=== PATIENT | male | born 1990 | race Caucasian/White ===

== ENCOUNTER 2021-11-05 21:13 | Emergency (ER) | payer MEDICAID ==
[~2021-11-05] VITALS: Ht 175.3 cm; Wt 80.3 kg
[~2021-11-05 21:13] MED LIST: CLIN150C2 PO; COL100C PO; FAMO-1 PO; HYDR-3965 PO; LEVO500T2 PO
[2021-11-05 21:58] VITALS: BP 118/73
[2021-11-06] MEDS ORDERED: acetaminophen 325mg tablet PO ONE (02:10)
[2021-11-06] MEDS ORDERED: ketorolac trometh inj. 60 MG/2 ML VIAL IM ONE (02:10)
[2021-11-06] MEDS ORDERED: PANT-47 PO (02:30)
== END 2021-11-06 02:35 | disposition home or self-care (01) ==
LOC: ER 21:14
DX: M79.671 Pain in right foot (principal); Z87.11 Personal history of peptic ulcer disease; Z90.89 Acquired absence of other organs; Z88.8 Allergy status to other drugs, medicaments and biological substances; Z79.2 Long term (current) use of antibiotics; Z79.899 Other long term (current) drug therapy
CPT/HCPCS: 73630; 96372; 99283; J1885

== ENCOUNTER 2022-04-18 12:34 | Inpatient (IN) | payer MEDICAID ==
[~2022-04-18] VITALS: Ht 167.6 cm; Wt 81.8 kg
[~2022-04-18 12:34] MED LIST changes: +PANT-47 PO
[2022-04-18 13:21] LABS: BASOPHILS # (AUTO) 0.1 X10'3 (0-0.2); BASOPHILS % (AUTO) 0.6 % (0-1); EOSINOPHILS # (AUTO) 0.2 X10'3 (0-0.9); EOSINOPHILS % (AUTO) 2.7 % (0-6); HEMATOCRIT 42.1 % (42.0-52.0); HEMOGLOBIN 14.3 g/dl (14.0-17.9); LYMPHOCYTES # (AUTO) 2.6 X10'3 (1.1-4.8); LYMPHOCYTES % (AUTO) 28.8 % (21-51); MEAN CORPUSCULAR HEMOGLOBIN 30.5 PG (27.0-31.0); MEAN CORPUSCULAR VOLUME 89.7 FL (78-98); MEAN PLATELET VOLUME 8.2 FL (7.4-10.4); MONOCYTES # (AUTO) 0.8 X10'3 (0-0.9); MONOCYTES % (AUTO) 8.3 % (2-12); NEUTROPHILS # (AUTO) 5.4 X10'3 (1.8-7.7); NEUTROPHILS % (AUTO) 59.6 % (42-75); PLATELET COUNT 363 X10'3 (140-440); RED CELL DISTRIBUTION WIDTH 13.2 % (11.5-14.5); WHITE BLOOD COUNT 9.1 X10'3 (4.5-11.0)
[2022-04-18 13:23] LABS: ALANINE AMINOTRANSFERASE 43 U/L (12-78); ALBUMIN 3.7 G/DL (3.4-5.0); ALBUMIN/GLOBULIN RATIO 1.2 (1.1-1.5); ALKALINE PHOSPHATASE 58 IU/L (46-116); ANION GAP 6 (8-16); ASPARTATE AMINO TRANSFERASE 23 U/L (10-37); BILIRUBIN,TOTAL 0.5 MG/DL (0.1-1.0); BLOOD UREA NITROGEN 10 MG/DL (7-18); BUN/CREATININE RATIO 10.4 (5.4-32.0); CALCIUM 8.8 MG/DL (8.5-10.1); CHLORIDE 108 MMOL/L (99-107); CREATININE 0.96 MG/DL (0.60-1.10); GLUCOSE 101 MG/DL (70-104); POTASSIUM 4.1 MMOL/L (3.5-5.1); SODIUM 143 MMOL/L (135-145); TOTAL CARBON DIOXIDE 28.9 MMOL/L (24-32); TOTAL PROTEIN 6.8 G/DL (6.4-8.2); eGFR > 90 ML/MIN
[2022-04-18] MEDS ORDERED: normal saline 1000ML IV soln IVB ONE (14:30)
[2022-04-18] MEDS ORDERED: diphenhydrAMINE 50 mg/ml inj IV ONE (14:30)
[2022-04-18] MEDS ORDERED: proCHLORperazine 10 MG/2 ml inj IV ONE (14:30)
[2022-04-18] MEDS ORDERED: ketorolac trometh. 30mg/ml inj. IV ONE (14:30)
[2022-04-18 15:44] LABS: ETHANOL < 0.010 GM/DL (0.0-0.010)
[2022-04-18 15:53] LABS: CLARITY,URINE CLEAR (Clear); COLOR,URINE YELLOW (Yellow); GLUCOSE, URINE NEGATIVE (Neg); KETONES,URINE NEGATIVE (Neg); LEUKOCYTE ESTERASE ,URINE NEGATIVE (Neg); NITRITES, URINE NEGATIVE (Neg); OCCULT BLOOD,URINE NEGATIVE (Neg); PROTEIN,URINE NEGATIVE (Neg); UROBILINOGEN,URINE 0.2 E.U/dL (0.2-1.0)
[2022-04-18 15:55] LABS: UA COLLECTION TYPE URINAL
[2022-04-18 15:58] LABS: URINE AMPHETAMINE SCREEN NEGATIVE (Neg); URINE BARBITUATE SCREEN NEGATIVE (Neg); URINE BENZODIAZEPINES SCREEN NEGATIVE (Neg); URINE CANNABINOID SCREEN POSITIVE (Neg); URINE COCAINE SCREEN NEGATIVE (Neg); URINE METHADONE SCREEN NEGATIVE (Neg); URINE OPIATE SCREEN POSITIVE (Neg); URINE PHENCYCLIDINE SCREEN NEGATIVE (Neg)
[2022-04-18] MEDS ORDERED: acetaminophen 650mg rectal suppository RC PRN (19:00)
[2022-04-18] MEDS ORDERED: diphenhydrAMINE 25mg capsule PO PRN (19:00)
[2022-04-18] MEDS ORDERED: magnesium hydroxide 30ml (MOM) UD suspension PO PRN (19:00)
[2022-04-18] MEDS ORDERED: mag hydrox/Alum hydrox/simeth 30ml oral suspension PO PRN (19:00)
[2022-04-18] MEDS ORDERED: magnesium 4gm in 100ml NS 100 ML IV PRN (19:00)
[2022-04-18] MEDS ORDERED: ondansetron/PF 4mg/2ml inj IV PRN (19:00)
[2022-04-18] MEDS: normal saline 1000ml 1,000 ML IV SCH (19:00)
[2022-04-18] MEDS ORDERED: magnesium Cl slow-release 64mg tablet PO PRN (19:00)
[2022-04-18] MEDS ORDERED: bisacodyl 10mg suppository rectal RC PRN (19:00)
[2022-04-18] MEDS ORDERED: POTASSIUM BICARB 20meq eff tab 20 MEQ TABLET.EFF PO PRN ×2 (19:00)
[2022-04-18] MEDS ORDERED: potassium CL 10mEq/100ml bag 100 ML IV PRN (19:00)
[2022-04-18] MEDS ORDERED: acetaminophen 325mg tablet PO PRN ×2 (19:00)
[2022-04-18] MEDS ORDERED: HYDROcodone/acetaminophen 5mg/325mg tablet PO PRN (19:00)
[2022-04-18] MEDS ORDERED: magnesium 2GM in 50ml NS 50 ML IV PRN (19:00)
[2022-04-18] MEDS ORDERED: PERFLUTREN PROTEIN-A MICROSPHR (Optison) 0.22 MG/ML 3ML VIAL IV ONE (19:00)
[2022-04-18] MEDS ORDERED: iohexol 350MG/ML 100ml bottle IV ONE (19:12)
[2022-04-18] MEDS: docusate sod 100mg capsule PO SCH (20:00)
[2022-04-18] MEDS: K and/or MAG REPLACEMENT MC SCH (20:00)
[2022-04-18] MEDS ORDERED: levetiracetam inj 1,000 MG in normal saline 100ml IV soln 90 ML IV STA (20:10)
[2022-04-18] MEDS: heparin, porcine 5000 units/ml vial SQ SCH (20:31)
[2022-04-18] MEDS: HYDROcodone/acetaminophen 10/325mg tab PO PRN (20:37)
[2022-04-18 22:25] VITALS: BP 114/45
--- NOTE | 2022-04-18 22:25 | NUR ---
pt rcd from er per luly.pt sedated but arousable with min stim.hr still in high 30's.bp 114/45.informed dr. de la cruz advised to transfer pt to higher level of care.0 will transfer pt to [facility].
[2022-04-18] MEDS ORDERED: atropine 1 MG/1 ML vial IV PRN (22:50)
[2022-04-18 23:45] VITALS: BP 104/61
--- NOTE | 2022-04-18 23:45 | NUR ---
Report given to ADOLPH Arambula,transfer pt to [facility] per bed,still sleepy.all belongings with pt.
[2022-04-19 02:00] VITALS: BP 104/52
[2022-04-19] MEDS: normal saline 1000ml 1,000 ML IV SCH (05:00)
[2022-04-19 06:00] VITALS: BP 98/63
[2022-04-19 06:44] LABS: BASOPHILS # (AUTO) 0.1 X10'3 (0-0.2); BASOPHILS % (AUTO) 0.7 % (0-1); EOSINOPHILS # (AUTO) 0.3 X10'3 (0-0.9); HEMOGLOBIN 13.4 g/dl (14.0-17.9); LYMPHOCYTES # (AUTO) 2.8 X10'3 (1.1-4.8); LYMPHOCYTES % (AUTO) 40.8 % (21-51); MEAN CORPUSCULAR HEMOGLOBIN 31.3 PG (27.0-31.0); MEAN CORPUSCULAR HGB CONC 34.4 g/dL (33.0-36.5); MEAN CORPUSCULAR VOLUME 91.1 FL (78-98); MEAN PLATELET VOLUME 8.4 FL (7.4-10.4); MONOCYTES # (AUTO) 0.7 X10'3 (0-0.9); NEUTROPHILS % (AUTO) 44.5 % (42-75); PLATELET COUNT 307 X10'3 (140-440); RED BLOOD COUNT 4.28 X10'6 (4.70-6.10); RED CELL DISTRIBUTION WIDTH 13.1 % (11.5-14.5); WHITE BLOOD COUNT 6.8 X10'3 (4.5-11.0)
--- NOTE | 2022-04-19 06:47 | NUR ---
Problems reprioritized. Patient report given, questions answered & plan of care reviewed with ADOLPH Enriquez.
[2022-04-19 07:06] LABS: ALANINE AMINOTRANSFERASE 34 U/L (12-78); ALBUMIN 3.1 G/DL (3.4-5.0); ALBUMIN/GLOBULIN RATIO 1.2 (1.1-1.5); ALKALINE PHOSPHATASE 50 IU/L (46-116); ANION GAP 5 (8-16); ASPARTATE AMINO TRANSFERASE 20 U/L (10-37); BILIRUBIN,TOTAL 0.5 MG/DL (0.1-1.0); BLOOD UREA NITROGEN 8 MG/DL (7-18); CALCIUM 8.6 MG/DL (8.5-10.1); CHLORIDE 113 MMOL/L (99-107); CHOL/HDL RATIO 2.7 (0.00-4.99); CHOLESTEROL 109 MG/DL (0-200); CREATININE 0.89 MG/DL (0.60-1.10); GLUCOSE 91 MG/DL (70-104); HDL CHOLESTEROL 40 MG/DL (35-60); LDL CHOLESTEROL 55 MG/DL (50-100); MAGNESIUM 2.2 MG/DL (1.5-2.4); PHOSPHORUS 3.3 MG/DL (2.3-4.5); POTASSIUM 4.3 MMOL/L (3.5-5.1); SODIUM 145 MMOL/L (135-145); TOTAL CARBON DIOXIDE 27.1 MMOL/L (24-32); TOTAL PROTEIN 5.7 G/DL (6.4-8.2); TRIGLYCERIDES 52 MG/DL (20-135); eGFR > 90 ML/MIN
[2022-04-19] MEDS: K and/or MAG REPLACEMENT MC SCH (08:00)
[2022-04-19] MEDS: docusate sod 100mg capsule PO SCH (08:00)
[2022-04-19] MEDS ORDERED: levetiracetam 250mg tablet PO SCH (08:00)
[2022-04-19] MEDS: heparin, porcine 5000 units/ml vial SQ SCH (08:00)
[2022-04-19] MEDS: HYDROcodone/acetaminophen 10/325mg tab PO PRN (09:31)
[2022-04-19 11:00] VITALS: BP 121/90
--- NOTE | 2022-04-19 13:43 | NUR ---
Pt discharged home with current instructions, Escorted to car via WC by RN.
== END 2022-04-19 13:27 | disposition home or self-care (01) | DRG 53 ==
LOC: ER 12:36 → ED HOLD 19:01 → EDBEDREQ 19:40 → ORTHO 4S 22:01 → PCU 3S 23:46
PROVIDERS: ADMIT Family Medicine; ATTEND Family Medicine
PROC: B3251ZZ Computerized Tomography (CT Scan) of Bilateral Common Carotid Arteries using Low Osmolar Contrast (ICD-10-PCS; principal; 2022-04-18)
PROC: B32G1ZZ Computerized Tomography (CT Scan) of Bilateral Vertebral Arteries using Low Osmolar Contrast (ICD-10-PCS; 2022-04-18)
PROC: B32R1ZZ Computerized Tomography (CT Scan) of Intracranial Arteries using Low Osmolar Contrast (ICD-10-PCS; 2022-04-18)
PROC: B3281ZZ Computerized Tomography (CT Scan) of Bilateral Internal Carotid Arteries using Low Osmolar Contrast (ICD-10-PCS; 2022-04-18)
DX: G40.89 Other seizures (principal); S06.9X1A Unspecified intracranial injury with loss of consciousness of 30 minutes or less, initial encounter; F12.90 Cannabis use, unspecified, uncomplicated; I10 Essential (primary) hypertension; F17.200 Nicotine dependence, unspecified, uncomplicated; K21.9 Gastro-esophageal reflux disease without esophagitis; G89.4 Chronic pain syndrome; W01.0XXA Fall on same level from slipping, tripping and stumbling without subsequent striking against object, initial encounter; Z91.14 Patient's other noncompliance with medication regimen; Z88.5 Allergy status to narcotic agent; Z28.310 Unvaccinated for COVID-19; Z87.11 Personal history of peptic ulcer disease; Y93.89 Activity, other specified; Y92.89 Other specified places as the place of occurrence of the external cause; Y99.8 Other external cause status; Z79.899 Other long term (current) drug therapy; Z71.51 Drug abuse counseling and surveillance of drug abuser; Z71.6 Tobacco abuse counseling
CPT/HCPCS: 36415; 70460; 70496; 70498; 70553; 73110; 73130; 80053; 80061; 80305; 80320; 81003; 82607; 83036; 83735; 84100; 84443; 85025; 87081; 96361; 96374; 96375; 97116; 97161; 97530; 99285; A6446; A6449; G0378; J0780; J1200; J1644; J1885; J1953; J3490; J7030; Q9967